=== PATIENT | female | born 1970 | race Caucasian/White ===

== ENCOUNTER → 2021-05-20 11:31 | Outpatient (CLI) | payer OTHER, SELFPAY ==
[2021-05-20 11:59] LABS: COVID19 -Nasal RAPID Negative (Negative)
== END ==
PROVIDERS: PCP Student in an Organized Health Care Education/Training Program; Referring Provider Physician Assistant; Visit Provider Physician Assistant
DX: Z20.822 Contact with and (suspected) exposure to COVID-19 (principal)
CPT/HCPCS: 87635

== ENCOUNTER 2023-08-18 08:44 | Day surgery (SDC) | payer OTHER, SELFPAY ==
[2023-08-18 09:05] VITALS: BP 118/75; PULSE 86; RESP 16; TEMP 36.4; O2SAT 100; BMI 28.3
[2023-08-18] MEDS: LACTATED RINGERS 1,000 ML 150 ML IV (09:22)
--- NOTE | 2023-08-18 09:44 | P.HP_ITS ---
History of Present Illness History of Present Illness Date Patient Seen: 08/18/23 Time Patient Seen: 09:45 Chief complaint: Screening Colonoscopy Narrative: The patient presents for colorectal screening. They have never had any previous examination for such. No personal or family history of colon cancer. On further history denies any recent gastrointestinal symptoms. No nausea, vomiting, abdominal pain, loss of appetite, unexplained weight loss, change in bowel habits, or blood per rectum. [facility] Medical History Abnormal Pap smear of cervix (~1987) Chicken pox (~1972) Foot pain (~2011) Moderate mixed hyperlipidemia not requiring statin therapy Surgical History Anesthesia S/P foot surgery, left (~2012) Family History Father Prostate cancer Hyperlipidemia Mother Hyperlipidemia Social History household members: spouse Smoking Status: Current every day smoker second hand exposure: No alcohol intake: current substance use type: does not use Meds Home Medications and Allergies Home Medications Medication Instructions Recorded Confirmed Type sodium,potassium,mag sulfates 17.5 See Rx Instructions PO .COMPLEX 04/20/23 08/18/23 Rx gram-3.13 gram-1.6 gram oral soln #354 mL (Suprep Bowel Prep Kit) Allergies Allergy/AdvReac Type Severity Reaction Status Date / Time erythromycin base Allergy Mild vomiting Verified 10/15/22 13:16 Exam Vital Signs (past 8 hours): - 08/18/23 09:05 Temperature 97.5 F L Pulse Rate 86 Respiratory Rate 16 Blood Pressure 118/75 Pulse Oximetry 100 Oxygen Delivery Method Room Air Oxygen Delivery Method Room Air Narrative Exam Narrative: General adult woman alert oriented no acute distress Abdomen soft nontender nondistended Assessment & Plan Assessment & Plan narrative: The patient requires colorectal screening and colonoscopy is recommended. Technical details were discussed. Risks, benefits, alternatives explained. Risks including but not limited to myocardial infarction, aspiration, bleeding, pain, missed lesion, incomplete examination, need for further radiographic studies, colonic perforation, and need for major abdominal surgery were d iscussed. All questions were answered to their satisfaction, and they are in agreement with this plan.
--- NOTE | 2023-08-18 09:49 | PM.OP.COLON ---
Operative Date/Time/Diagnoses Date of procedure: 08/18/23 Time of procedure: 09:49 Pre-op diagnosis: Colorectal screening Procedure & Clinicians Study performed: Colonoscopy Same procedure as scheduled: Yes Indications: 52-year-old woman here for routine screening colonoscopy Surgeon: Chato Shankar Procedure Notes Procedure in detail: The history and physical was performed/updated and the patient is ASA class is 2. The procedure was discussed in detail with the patient. Potential risks complications including infection, bleeding, missed diagnosis, perforation, need for surgery, and were explained. Their questions were answered and informed consent was obtained. Patient was brought to the procedure room and placed standard monitoring equipment. The patient's vital signs were monitored continuously throughout the entire procedure. Prior to starting time-out was performed. The patient was placed in the left lateral recumbent position. Procedural sedation was administered by anesthesia. Examination began with a thorough inspection of the perianal area there was no evidence of fissures, fistulae, external hemorrhoids or cutaneous malignancy. The colonoscopy scope was then placed into the anal canal and was advanced to the cecum, which was identified by the ileocecal valve, the appendiceal orifice and the confluence of the taenia. The scope was then slowly withdrawn examining colon thoroughly in all directions, irrigating it of any residual stool. Normal healthy colon without masses or polyps. The patient tolerated the procedure well. They will be discharged once criteria are met. The prep was of good/excellent quality. The withdrawl time was 6 minutes. Specimen(s): none sent Impression: Normal colonoscopy Post-procedure Recommendations: Colonoscopy in 10 years Disposition: same day surgery
[2023-08-18 10:13] VITALS: BP 87/49; PULSE 74; RESP 16; TEMP 36.2; O2SAT 93
[2023-08-18 10:19] VITALS: BP 95/52; PULSE 67; RESP 15; O2SAT 94
[2023-08-18 10:22] VITALS: BP 104/68; PULSE 77; RESP 14; O2SAT 98
[2023-08-18 10:26] VITALS: BP 102/64; PULSE 66; RESP 14; TEMP 37; O2SAT 98
== END 2023-08-18 10:40 | disposition home or self-care (01) ==
PROVIDERS: PCP Pediatrics; Referring Provider Surgery; Visit Provider Surgery
PROC: 0DJD8ZZ Inspection of Lower Intestinal Tract, Via Natural or Artificial Opening Endoscopic (ICD-10-PCS; CPT 45378; principal; 2023-08-18 09:45)
DX: Z12.11 Encounter for screening for malignant neoplasm of colon (principal)
CPT/HCPCS: 45378; J2704

== ENCOUNTER → 2023-10-20 12:51 | Outpatient (CLI) | payer OTHER, SELFPAY ==
--- NOTE | 2023-10-20 | DI.MG.S_ITS ---
BILATERAL DIGITAL SCREENING MAMMOGRAM 3D/2D WITH CAD: 10/20/2023 CLINICAL: Routine screening. Family history of breast cancer. Baseline exam. Comparison is made to exams dated: 12/28/2015 mammogram and 10/02/2014 mammogram. There are scattered areas of fibroglandular density in both breasts (category b / 25%-50% glandular tissue). Current study was also evaluated with a Computer Aided Detection (CAD) system. No significant masses, calcifications, or other findings are seen in either breast. There has been no significant interval change. IMPRESSION: NEGATIVE There is no mammographic evidence of malignancy. A 1 year screening mammogram is recommended. Based on the Tyrer Cuzick model (a risk assessment model) the patient's lifetime risk is 14.4% and her 10 year risk is 4.3%. According to the ACR, ACS, and NCCN guidelines, an annual breast MRI exam along with mammogram is recommended if the patient's lifetime risk is 20% or greater. This exam was interpreted at Station ID: [id number]. NOTE: For mammograms, a report in lay terms will be sent to the patient. Approximately 15% of breast malignancies will not be visualized mammographically. In the management of a palpable breast mass, a negative mammogram must not discourage biopsy of a clinically suspicious lesion. Electronically Signed By: Erlin mendes/davin:10/20/2023 13:56:31 letter sent: Normal Exam ACR BI-RADS Category 1: Negative 3341F
== END ==
PROVIDERS: PCP Family Medicine; Referring Provider Family Medicine; Visit Provider Family Medicine
DX: Z12.31 Encounter for screening mammogram for malignant neoplasm of breast (principal); Z80.3 Family history of malignant neoplasm of breast
CPT/HCPCS: 77063; 77067

== ENCOUNTER → 2023-12-29 13:37 | Outpatient (CLI) | payer OTHER, SELFPAY ==
[2023-12-29 14:07] LABS: Hemoglobin A1C% w Est Avg Glu 5.2 % (4.0-6.0)
[2023-12-29 14:52] LABS: Alanine Aminotransferase 35 IU/L (<35); Albumin 4.2 g/dL (3.5-5.0); Albumin Globulin Ratio 1.4 (1.0-2.8); Alkaline Phosphatase 92 U/L (38-126); Aspartate Aminotransferase 28 IU/L (14-36); BUN Creatinine Ratio 13.8 (6-22); Bilirubin Total 0.5 mg/dL (0.2-1.3); Blood Urea Nitrogen 13 mg/dL (7-17); Calcium 9.3 mg/dL (8.4-10.2); Carbon Dioxide 26 mmol/L (22-32); Chloride 105 mmol/L (98-107); Cholesterol 209 mg/dL (140-199); Estimated Glomerular Filt Rate > 60 mL/min (>60); Globulin 3.1 g/dL (1.7-4.1); Glucose 102 mg/dL (70-100); HDL Cholesterol 73 mg/dL (40-60); HEMOLYSIS < 15 (0-50); LDL Cholesterol Calculated 122 mg/dL (<100); Potassium 3.9 mmol/L (3.4-5.1); Sodium 140 mmol/L (137-145); Total Protein 7.3 g/dL (6.3-8.2); Triglycerides 70 mg/dL (35-150)
== END ==
LOC: LAB 13:38
PROVIDERS: PCP Family Medicine; Referring Provider Family Medicine; Visit Provider Family Medicine
DX: Z00.00 Encounter for general adult medical examination without abnormal findings (principal)
CPT/HCPCS: 36415; 80053; 80061; 83036

== ENCOUNTER → 2024-12-23 12:44 | Outpatient (CLI) | payer OTHER, SELFPAY ==
--- NOTE | 2024-12-23 12:45 | DI.MG.S_ITS ---
BILATERAL DIGITAL SCREENING MAMMOGRAM 3D/2D WITH CAD: 12/23/2024 CLINICAL: Routine screening. Family history of breast cancer. Comparison is made to exams dated: 10/20/2023 mammogram - , 12/28/2015 mammogram, and 10/02/2014 mammogram. There are scattered areas of fibroglandular density (category b / 25%-50% glandular tissue). Current study was also evaluated with a Computer Aided Detection (CAD) system. There are benign post operative findings in the left breast. No significant masses, calcifications, or other findings are seen in either breast. There has been no significant interval change. IMPRESSION: BENIGN There is no mammographic evidence of malignancy. A 1 year screening mammogram is recommended. Based on the Tyrer Cuzick model (a risk assessment model) the patient's lifetime risk is 14.0% and her 10 year risk is 4.6%. According to the ACR, ACS, and NCCN guidelines, an annual breast MRI exam along with mammogram is recommended if the patient's lifetime risk is 20% or greater. This exam was interpreted at Station ID: [id number]. NOTE: For mammograms, a report in lay terms will be sent to the patient. Approximately 15% of breast malignancies will not be visualized mammographically. In the management of a palpable breast mass, a negative mammogram must not discourage biopsy of a clinically suspicious lesion. Electronically Signed By: Uzma Morris M.D., Ph.D. vinicio/davin:12/23/2024 14:23:08 letter sent: Normal Exam ACR BI-RADS Category 2: Benign
== END ==
PROVIDERS: PCP Family Medicine; Referring Provider Family Medicine; Visit Provider Family Medicine
DX: Z12.31 Encounter for screening mammogram for malignant neoplasm of breast (principal); Z80.3 Family history of malignant neoplasm of breast
CPT/HCPCS: 77063; 77067

== ENCOUNTER → 2025-01-31 15:58 | Outpatient (CLI) | payer OTHER, SELFPAY ==
[2025-01-31 16:37] LABS: Add Manual Diff / Slide Review NO; Basophils Absolute Auto 100 /uL (0-100); Basophils Percent Auto 1.9 % (0-2); Eosinophils Absolute Auto 200 /uL (0-450); Hematocrit 41.9 % (36-46); Hemoglobin 14.4 g/dL (12.0-16.0); Lymphocytes Absolute Auto 1600 /uL (1100-4500); Lymphocytes Percent Auto 23.6 % (25-40); Mean Corpuscular HGB Conc 34.4 % (30-36); Mean Corpuscular Hemoglobin 32.5 PG (26-34); Mean Corpuscular Volume 94.6 fL (80-100); Monocytes Absolute Auto 300 /uL (0-900); Monocytes Percent Auto 4.4 % (3-14); Neutrophils Absolute Auto 4500 /uL (1500-7000); Neutrophils Percent Auto 67.1 % (50-75); Platelet Count 324 X10^3/uL (150-400); Red Blood Cell Count 4.43 X10^6/uL (4.0-5.2); Red Cell Distribution Width 12.6 % (11.6-14.8); White Blood Cell Count 6.6 X10^3/uL (4.5-11.0)
[2025-01-31 17:01] LABS: Alanine Aminotransferase 46 IU/L (<35); Albumin 4.5 g/dL (3.5-5.0); Albumin Globulin Ratio 1.4 (1.0-2.8); Alkaline Phosphatase 109 U/L (38-126); Aspartate Aminotransferase 42 IU/L (14-36); Bilirubin Total 0.3 mg/dL (0.2-1.3); Blood Urea Nitrogen 8 mg/dL (7-17); Calcium 8.8 mg/dL (8.4-10.2); Carbon Dioxide 27 mmol/L (22-32); Chloride 103 mmol/L (98-107); Cholesterol 249 mg/dL (140-199); Estimated Glomerular Filt Rate > 60 mL/min (>60); Globulin 3.2 g/dL (1.7-4.1); Glucose 91 mg/dL (70-100); HDL Cholesterol 74 mg/dL (40-60); HEMOLYSIS < 15 (0-50); LDL Cholesterol Calculated 158 mg/dL (<100); Potassium 3.8 mmol/L (3.4-5.1); Sodium 137 mmol/L (137-145); Total Protein 7.7 g/dL (6.3-8.2); Triglycerides 84 mg/dL (35-150)
== END ==
LOC: LAB 15:58
PROVIDERS: PCP Family Medicine; Referring Provider Family Medicine; Visit Provider Family Medicine
DX: Z00.00 Encounter for general adult medical examination without abnormal findings (principal)
CPT/HCPCS: 36415; 80053; 80061; 85025

== ENCOUNTER 2025-04-12 14:07 | Day surgery (SDC) | payer OTHER, SELFPAY ==
[2025-04-05 12:35] VITALS: BMI 27.4
--- NOTE | 2025-04-12 | PATH_ITS ---
[facility] Accession Number: [id number] No. of containers..01 Tissue . 01 Material submitted: . back - LEFT BACK LIPOMA . 01 Diagnosis: LEFT BACK, EXCISION: Mature adipose tissue. See comment. [facility] [place] 04/25/2025 1604 Local . 01 Comment: Given the size, material will be sent for MDM2 amplification studies to evaluate for atypical lipomatous tumor. The final diagnosis and the MDM2 results will be reported in an addendum. . 01 Electronically signed: . Deborah Rangel MD, Pathologist NPI- [id number] . 01 Gross description: . Received in formalin with two identifiers and left back lipoma, is an encapsulated, yellow, lobulated soft tissue fragment, 12.2 x 8.0 x 2.9 cm. The external surface is inked blue, and sectioning reveals a yellow, soft cut surface with small punctate areas of hemorrhage. [employer] sections are submitted in A1-A2. ([id number]) /MRV 04/13/2025 1428 Local . 01 Pathologist provided ICD-10: D17.1 . 01 CPT . 60256 Specimen Comment: A courtesy copy of this report has been sent to [phone] Performed at: [address] [address], [place], [place] [id number] MD Skyler Alcantara MD Phone: [phone]
[2025-04-12 15:58] VITALS: BP 129/79; PULSE 77; RESP 16; TEMP 36.4; O2SAT 100; BMI 27.4
[2025-04-12] MEDS: LACTATED RINGERS 1,000 ML 42 ML IV ×2 (16:18→18:23)
--- NOTE | 2025-04-12 17:16 | P.HP_ITS ---
History of Present Illness History of Present Illness Date Patient Seen: 04/12/25 Time Patient Seen: 17:16 Chief complaint: Excisional bx of L flank lipoma Narrative: Minnie is a 54-year-old woman with a large lipoma on her left back. Office note for details. [facility] Medical History (Updated 03/28/25 @ 11:23 by Parrish Mazariegos MD) Abnormal Pap smear of vagina (04/30/88) Moderate mixed hyperlipidemia not requiring statin therapy Foot pain (~2011) Chicken pox (~1972) Abnormal Pap smear of cervix (~1987) Surgical History Anesthesia S/P foot surgery, left (~2012) Family History Father Prostate cancer Hyperlipidemia Mother Hyperlipidemia Social History (Updated 01/30/25 @ 12:36 by Carol Mccarthy MA) marital status: number of children: 0 household members: spouse lives independently: Yes caregiver/support person: No housing: house pets and animals: Yes education level: college occupational status: employed current occupational exposures/hazards: No special zeke needs: No travel history: recent leisure activities: exercise and reading seatbelt use: always water heater temp set < 120 deg: No working smoke detector in home: Yes fire extinguisher in home: Yes carbon monox detector in home: Yes do you feel safe at home: Yes Smoking Status: Current every day smoker quit status: has quit before second hand exposure: No alcohol intake: current substance use type: does not use during the past year weight has: remained stable well-balanced diet: about half the time daily servings fruits/ve-4 caffeine: Yes eating out: rarely or never Type(s) of exercise: walking frequency: 5-6 times per week duration: 30-45 minutes/day Meds Home Medications and Allergies Home Medications Medication Instructions Recorded Confirmed Type No Known Home Medications 04/12/25 04/12/25 History Allergies Allergy/AdvReac Type Severity Reaction Status Date / Time erythromycin base Allergy Mild vomiting Verified 04/12/25 15:57 Exam Vital Signs (past 8 hours): - 04/12/25 15:58 Temperature 97.5 F L Pulse Rate 77 Respiratory Rate 16 Blood Pressure 129/79 Pulse Oximetry 100 Oxygen Delivery Method Room Air Oxygen Delivery Method Room Air Narrative Exam Narrative: 15-20 cm left mid back lipoma Assessment & Plan Assessment and plan (1) Subcutaneous mass of back: Status: Acute Plan Excision of left back lipoma in the operating room. Time-Based Coding :: [TOTAL MINUTES] spent with patient and on the chart (including review of chart, obtaining history, exam, reviewing outside data, placing orders, documenting exam and treatment plan, and counseling patient) on [DATE]. [employer] Document charge(s): No
--- NOTE | 2025-04-12 18:16 | SUR.OPER ---
right Lateral on a saini bag, left side up and exposed,, head on pillow, gel axillary roll in place, bottom leg bent with gel pad under knee to foot, upper leg straight and supported with pillows. Upper arm supported by pillows and secured over bottom arm to padded arm board. Safety belt at hip, tape over blanket lower legs. warm blankets placed to arms, part of torso, hip and legs.
[2025-04-12] MEDS: BUPIVACAINE 0.5% W/ EPI (PF) 30 ML VIAL INJ (18:18)
--- NOTE | 2025-04-12 18:38 | PM.OP.1 ---
Operative Date/Time/Diagnoses Date of procedure: 04/12/25 Time of procedure: 18:38 Pre-op diagnosis: Left back lipoma Post-op diagnosis: same Procedure & Clinicians Procedure: Excisional biopsy of left back lipoma Same procedure as scheduled: Yes Surgeon: Parrish Mazariegos Performance Test Engineer: Hermes Mederos Anesthesia Type: General Operative Notes Findings: Left back lipoma Estimated Blood Loss (mL): 20 Procedure in detail: The patient is a 54-year-old woman with a left back lipoma. She was consented for an excisional biopsy in the operating room. The patient was brought to the operating room and general anesthesia was induced via LMA. She was then positioned in the right lateral decubitus position with the left side up. She was supported with a saini bag. Her left upper back was prepped and draped in the usual fashion and a time-out was performed. Some local was injected over the mass. A 12 cm transverse incision was created over the mass. We dissected down to the capsule of the lipoma. We then dissected the lipoma free from the surrounding subcutaneous adipose tissue. The deepest aspect of the lipoma extended down to the muscle fascia. It was dissected cleanly off the muscle fascia. A few bleeders were cauterized. Additional local was injected into the muscle and fascia. The specimen measured 14 cm x 7 cm x 2 cm ex vivo. We then irrigated the wound cavity with sterile saline. We injected additional local into the wound cavity and closed in layers using multiple interrupted 3-0 Vicryl subcutaneous and dermal sutures followed by a running 4-0 Monocryl subcuticular closure. Steri-Strips and a dressing were applied. EBL: 20 mL Specimen: Left back lipoma Hermes MORENO provided assistance with exposure, retraction and closure of incisions. Complications: none Post-operative Condition: stable Disposition: PACU
[2025-04-12 18:52] VITALS: BP 124/70; PULSE 120; RESP 20; TEMP 36.5; O2SAT 98
[2025-04-12 18:57] VITALS: BP 116/64; PULSE 118; RESP 11; O2SAT 98
[2025-04-12 19:02] VITALS: BP 123/68; PULSE 110; RESP 17; O2SAT 98
[2025-04-12 19:06] VITALS: BP 119/70; PULSE 106; RESP 15; O2SAT 100
[2025-04-12 19:25] VITALS: BP 188/75; PULSE 95; RESP 16; TEMP 36.5; O2SAT 98
== END 2025-04-12 19:55 | disposition home or self-care (01) ==
PROVIDERS: PCP Family Medicine; Referring Provider Surgery; Visit Provider Surgery
PROC: (CPT 21931; principal; 2025-04-12 15:15)
DX: D17.1 Benign lipomatous neoplasm of skin and subcutaneous tissue of trunk (principal)
CPT/HCPCS: 21931; J1100; J2250; J2405; J2704; J3010